=== PATIENT | male | born 1950 | race Caucasian/White ===

== ENCOUNTER → 2020-07-29 10:52 | Outpatient (CLI) | payer MEDICARE, SELFPAY ==
[2020-07-29] MEDS: COVID-19 VACC #1, MRNA(MOD) 100 MCG/0.5 ML VIAL IM (11:00)
== END ==
PROVIDERS: Visit Provider Internal Medicine
DX: Z23 Encounter for immunization (principal)
CPT/HCPCS: 0011A; 91301

== ENCOUNTER → 2020-08-25 14:10 | Outpatient (CLI) | payer MEDICARE, SELFPAY ==
[2020-08-25] MEDS: COVID-19 VACC #2, MRNA(MOD) 100 MCG/0.5 ML VIAL IM (14:20)
== END ==
PROVIDERS: Visit Provider Internal Medicine
DX: Z23 Encounter for immunization (principal)
CPT/HCPCS: 0012A; 91301

== ENCOUNTER → 2022-11-13 15:05 | Outpatient (CLI) | payer MEDICARE, OTHER, SELFPAY ==
--- NOTE | 2022-11-13 15:11 | DI.MRI.S_ITS ---
PROCEDURE: MR PELVIC PROSTATE PROTOCOL INDICATIONS: Elevated and rising PSA TECHNIQUE: Coronal HASTE, axial T1 FSE with fat saturation, 3-plane nonbreath-hold T2 FSE. After the administration of contrast, dynamic axial, delayed axial and coronal VIBE or 2-D FLASH with fat saturation through the pelvis. Optional diffusion weighted imaging and ADC may be performed. COMPARISON: None. FINDINGS: Image quality: Diffusion weighted and dynamic contrast enhanced images are diagnostic. Multiple sequences are degraded by motion artifact however. Prostate: Gland size is 4.6 x 3.3 x 5.8 cm; ellipsoid gland volume is 46 mL. Lesion #1: Size: 1.6 x 0.9 centimeters Location: Left posterolateral peripheral zone, base-mid gland (axial ADC series 24, image 14) T2 signal: T2 weighted images are degraded by motion artifact but the finding appears to demonstrate heterogeneous signal intensity DWI/ADC signal: Hypointense on ADC images with corresponding DWI hyperintensity DCE: Positive BAUDILIO: Possible extracapsular extension posterolaterally in the region of the neurovascular bundle (axial T2 series 4, image 11), however T2 images are degraded by motion artifact Seminal vesicle invasion: Negative PI-RADS: T2 signal - 3; ADC - 5; DCE - positive; Overall score: PI-RADS 5. Genitourinary system: Bladder wall thickness is normal. Distal ureters are non distended. Bowel and peritoneum: No pathologic free pelvic fluid. Inferior colon and small bowel loops are normal in caliber. Nodes and vessels: No pelvic or inguinal adenopathy by size criteria. Iliac vessels are normal in caliber. Soft tissues: Left inguinal hernia containing fat and a short segment of nondilated sigmoid colon. Bones: Marrow demonstrates unremarkable overall signal, without lesions to suggest metastases. IMPRESSION: 1. A 1.6 centimeter lesion at the left peripheral zone, base-mid gland, is consistent with PI-RADS category 5. 2. No suspicious lymph nodes identified in the imaged pelvis. 3. Left inguinal hernia containing fat and a short segment of nondilated sigmoid colon. Dictated by: Alex Hassan M.D. on 11/14/2022 at 9:08 Approved by: Alex Hassan M.D. on 11/14/2022 at 9:36
== END ==
PROVIDERS: PCP Family Medicine; Referring Provider Urology; Visit Provider Urology
DX: R97.20 Elevated prostate specific antigen [PSA] (principal); K40.90 Unilateral inguinal hernia, without obstruction or gangrene, not specified as recurrent
CPT/HCPCS: 72197; A9579

== ENCOUNTER → 2023-01-08 11:11 | Outpatient (CLI) | payer MEDICARE, OTHER, SELFPAY ==
--- NOTE | 2023-01-08 12:41 | DI.CT.S_ITS ---
PROCEDURE: CT ABDOMEN PELVIS W CON INDICATIONS: New diagnosis prostate cancer TECHNIQUE: After the administration of intravenous contrast, axial sections acquired from the lung bases to the pubic symphysis. Coronal and sagittal reformats were performed. For radiation dose reduction, the following was used: automated exposure control, adjustment of mA and/or kV according to patient size. COMPARISON: [facility], , MR PELVIC PROSTATE PROTOCOL, 11/13/2022, 15:23. FINDINGS: Image quality: Excellent. Lung bases: Lung bases are clear. Heart size is normal. Solid organs: Liver: The liver has no mass or intrahepatic biliary ductal dilatation. The portal vein and hepatic veins are patent. Biliary: The gallbladder has no gallstones, pericholecystic fluid, gallbladder wall thickening, or surrounding inflammatory change. Pancreas: The pancreas has no mass or ductal dilatation. There is no surrounding inflammation. Spleen: Normal size. There are no masses. Adrenals: No hypertrophy or nodules. Kidneys: No obstructive calculus or hydronephrosis. No solid mass. No cystic mass. Peritoneum and bowel: The distal esophagus and stomach are normal. The small bowel has a normal caliber and appearance. The terminal ileum is normal. The large bowel has a normal caliber and appearance. The appendix is normal. No free fluid or air. Nodes and vessels: No retroperitoneal or mesenteric adenopathy by size criteria. Aorta and inferior vena cava are normal in size. Miscellaneous: There is a left inguinal hernia containing a segment of the left colon/sigmoid colon PELVIS: Genitourinary: The bladder has no wall thickening or mass. No bladder calcifications. The prostate has an irregular shape with heterogenous enhancement consistent with known prostate cancer. Bones: No suspicious bony lesions. No vertebral body compression fractures. IMPRESSION: No evidence of metastatic disease. Dictated by: Evens Inman M.D. on 01/08/2023 at 14:33 Approved by: Evens Inman M.D. on 01/08/2023 at 14:39
[2023-01-08 12:50] LABS: BUN Creatinine Ratio 21.1 (6-22); Blood Urea Nitrogen 16 mg/dL (9-20); Calcium 8.7 mg/dL (8.4-10.2); Carbon Dioxide 27 mmol/L (22-32); Chloride 104 mmol/L (98-107); Estimated Glomerular Filt Rate > 60 mL/min (>60); Glucose 98 mg/dL (80-110); HEMOLYSIS < 15 (0-50); Potassium 4.2 mmol/L (3.4-5.1); Sodium 136 mmol/L (137-145)
== END ==
PROVIDERS: PCP Family Medicine; Referring Provider Urology; Visit Provider Urology
DX: C61 Malignant neoplasm of prostate (principal); R93.89 Abnormal findings on diagnostic imaging of other specified body structures; K40.90 Unilateral inguinal hernia, without obstruction or gangrene, not specified as recurrent
CPT/HCPCS: 36415; 74177; 80048; Q9967

== ENCOUNTER → 2023-01-15 09:07 | Outpatient (CLI) | payer MEDICARE, OTHER, SELFPAY ==
--- NOTE | 2023-01-15 09:09 | DI.NM.S_ITS ---
PROCEDURE: NM BONE SCAN WHOLE BODY RADIOPHARMACEUTICAL: 31.9 mCi Tc-99m MDP IV. INDICATIONS: New diagnosis prostate cancer TECHNIQUE: Delayed whole-body scintigrams were obtained approximately 3-4 hours after intravenous injection of radiotracer. Anterior and posterior views were acquired from vertex to feet. Additional left and right oblique views of the pelvis were obtained. COMPARISON: [facility], MR, MR PELVIC PROSTATE PROTOCOL, 11/13/2022, 15:23. [facility], CT, CT ABDOMEN PELVIS W CON, 01/08/2023, 13:07. FINDINGS: No abnormal uptake of radiotracer is seen within the bones of the calvarium or bones of the face. No abnormal radiotracer uptake is seen within the cervical spine, thoracic spine, or lumbar spine. No abnormal uptake of radiotracer is seen within the sternum. No abnormal rib uptake is seen. A mild degree of symmetric uptake is seen within the region of the shoulders, which is attributed to degenerative change and is not considered to be pathologic. No abnormal uptake is seen within the upper extremities. No abnormal uptake is seen within the pelvis or within the lower extremities. No abnormal soft tissue uptake is seen. The kidneys demonstrate normal positions. IMPRESSION: No findings of bony metastatic disease can be seen. Dictated by: Angel Luis Hastings M.D. on 01/15/2023 at 13:08 Approved by: Angel Luis Hastings M.D. on 01/15/2023 at 13:09
== END ==
PROVIDERS: PCP Family Medicine; Referring Provider Urology; Visit Provider Urology
DX: C61 Malignant neoplasm of prostate (principal)
CPT/HCPCS: 78306; A9503

== ENCOUNTER 2023-07-23 05:02 | Emergency (ER) | payer MEDICARE, OTHER, SELFPAY ==
[2023-07-23 05:04] VITALS: BP 126/74; PULSE 59; RESP 16; TEMP 36.8; O2SAT 97; BMI 29.2
[2023-07-23 05:22] VITALS: PULSE 58; RESP 14; O2SAT 97
[2023-07-23 05:30] VITALS: BP 113/66; PULSE 57; RESP 13; O2SAT 97
--- NOTE | 2023-07-23 05:34 | DI.RAD.S_ITS ---
PROCEDURE: XR CHEST 1V INDICATIONS: chest pain TECHNIQUE: One view of the chest was acquired. COMPARISON: [facility], , CHEST 2 VIEW, 01/15/2011, 10:49. FINDINGS: Surgical changes and devices: None. Lungs and pleura: Lungs are clear. Minimal left pleural effusion. Mediastinum: Mediastinal contours appear normal. Heart size is normal. Bones and chest wall: No suspicious bony lesions. Overlying soft tissues appear unremarkable. IMPRESSION: Minimal left pleural effusion. Comment: Final report is concordant with preliminary interpretation provided by [facility]. Dictated by: Gallo Adler M.D. on 07/23/2023 at 8:26 Approved by: Gallo Adler M.D. on 07/23/2023 at 8:27
--- NOTE | 2023-07-23 05:44 | ED.EXTPRO ---
HPI - Extremity Problem General Chief complaint: Extremity Problem,Nontraumatic Stated complaint: left should pain, wants to check heart Time Seen by Provider: 07/23/23 05:35 Source: patient Mode of arrival: Family Vehicle History of Present Illness HPI Narrative: Patient is a 73-year-old male history of remote prostate cancer, bradycardia hypothyroid presenting today with left-sided chest discomfort. He reports that he lifts weights and exercises every other day he did exercise yesterday. He reports that he did the exact same exercises as he always does he did not even increase weight something he also does not do. He woke up this morning with left-sided chest discomfort. He says it does hurt when he breathes and moves. Seizure echo to his lap muscle. There is 1 point on his back also hurts. He denies any shortness of breath nausea or diaphoresis. He has no known history of coronary artery disease. Related Data Home Medications Medication Instructions Recorded Confirmed pravastatin 20 mg tablet 1 tab PO QDAY ##0 03/20/17 01/01/23 levothyroxine 137 mcg tablet 137 mcg PO DAILY 11/05/22 01/01/23 Allergies Allergy/AdvReac Type Severity Reaction Status Date / Time No Known Drug Allergies Allergy Unverified 01/17/23 13:30 Patient History Medical History Prostate cancer Abnormal findings on imaging test Benign prostatic hyperplasia Rising PSA level Elevated PSA History of hypothyroidism Hx of hyperlipidemia Family History Mother Cancer Hyperlipidemia Brother Stroke Father CAD (coronary artery disease) Social History marital status: Smoking Status: Former smoker Tobacco: How many years used: 30 caffeine: Yes Smoking Status: Former smoker Exam Initial Vital Signs Initial Vital Signs: Vital Signs Temperature 98.2 F 07/23/23 05:04 Pulse Rate 59 L 07/23/23 05:04 Respiratory Rate 16 07/23/23 05:04 Blood Pressure 126/74 07/23/23 05:04 Pulse Oximetry 97 07/23/23 05:04 Oxygen Delivery Method Room Air 07/23/23 05:04 GENERAL: Alert 73-year-old male and in [no acute] distress. HEENT: Head atraumatic,EOMI, pupils reactive, face symmetric, [moist] mucous membranes CARDIOVASCULAR: Regular rate and rhythm without murmurs, rubs or gallops. RESPIRATORY: Breath sounds equal bilaterally, no wheezes rales or rhonchi. ABDOMEN: Soft, nontender. Normoactive bowel sounds all 4 quadrants. No guarding or rebound. EXTREMITIES: Normal range of motion, no clubbing or edema. Neurovascularly intact NEUROLOGICAL: Alert and oriented x4.Normal gait and speech. Cranial nerves II through XII grossly intact. SKIN: Warm, dry, no laceration, no petechiae, no rashes or lesions. Scores HEART Score Heart Score history: Slightly Suspicious Heart Score EKG: Normal Heart Score Age: > or = 65 years old Heart Score risk factors: No known risk factors Heart Score troponin: < or = to normal limit Heart Score Total: 2 Course Orders Ordered: ED Orders 07/23/23 05:34 XR chest 1V Stat EKG-12 Lead Stat 07/23/23 05:45 Complete Blood Count AUTO DIFF Stat Comprehensive Metabolic Panel Stat Lipase Stat Magnesium Stat PTT Partial Thromboplastin Immanuel Stat Prothrombin Time INR Stat Troponin & CK Cardiac Panel Stat 07/23/23 06:07 CT chest w con Stat 07/23/23 06:42 BNP [NT-proBNP (BNP-Adult 18+)] Stat Vital Signs Vital signs: Vital Signs - 8 hr 07/23/23 05:04 07/23/23 05:22 07/23/23 05:30 Temperature 98.2 F Pulse Rate 59 L 58 L Pulse Rate [Left Radial] Respiratory Rate 16 14 Blood Pressure 126/74 113/66 Pulse Oximetry 97 97 Oxygen Delivery Method Room Air Room Air 07/23/23 05:30 07/23/23 06:00 07/23/23 06:00 Temperature Pulse Rate 57 L 55 L Pulse Rate [Left Radial] Respiratory Rate 13 20 Blood Pressure 104/63 Pulse Oximetry 97 98 Oxygen Delivery Method Room Air Room Air 07/23/23 06:30 07/23/23 06:30 07/23/23 06:44 Temperature Pulse Rate 53 L Pulse Rate [Left Radial] 55 L Respiratory Rate 10 L Blood Pressure 104/63 Pulse Oximetry 96 Oxygen Delivery Method MDM - Extremity (Nontraumatic) Lab Data 07/23/23 05:45 07/23/23 05:45 Labs: Lab Results 07/23/23 07/23/23 Range/Units 05:00 05:45 WBC 7.7 (4.5-11.0) X10^3/uL RBC 4.48 L (4.5-5.9) X10^6/uL Hgb 13.7 (13.5-17.5) g/dL Hct 40.7 L (41-53) % MCV 90.8 (80-100) fL MCH 30.6 (26-34) PG MCHC 33.6 (30-36) % RDW 14.2 (11.6-14.8) % Plt Count 187 (150-400) X10^3/uL Neut % (Auto) 68.8 (50-75) % Lymph % (Auto) 17.3 L (25-40) % [place] % (Auto) 10.5 (3-14) % Eos % (Auto) 2.2 (2-4) % Baso % (Auto) 1.2 (0-2) % Neut # (Auto) 5300 (1991-4041) /uL Lymph # (Auto) 1300 (3541-1100) /uL [place] # (Auto) 800 (0-900) /uL Eos # (Auto) 200 (0-450) /uL Baso # (Auto) 100 (0-100) /uL PT 10.3 (9.4-12.5) SECONDS INR 0.9 (0.9-1.3) APTT 30 (25.1-36.5) SECONDS Sodium 137 (137-145) mmol/L Potassium 3.9 (3.4-5.1) mmol/L Chloride 104 (98-107) mmol/L Carbon Dioxide 27 (22-32) mmol/L BUN 19 (9-20) mg/dL Creatinine 0.80 (0.66-1.25) mg/dL Estimated GFR > 60 (>60) mL/min BUN/Creatinine Ratio 23.8 H (6-22) Glucose 95 (80-110) mg/dL Calcium 8.7 (8.4-10.2) mg/dL Magnesium 2.2 (1.6-2.3) mg/dL Total Bilirubin 0.5 (0.2-1.3) mg/dL AST 23 (17-59) IU/L ALT 20 (<50) IU/L Alkaline Phosphatase 44 (38-126) U/L Total Creatine Kinase 44 L (55-170) U/L Troponin I < 0.012 (0.01-0.034) ng/mL NT-Pro-B Natriuret Pep 39 (<125) pg/mL Total Protein 6.7 (6.3-8.2) g/dL Albumin 3.8 (3.5-5.0) g/dL Globulin 2.9 (1.7-4.1) g/dL Albumin/Globulin Ratio 1.3 (1.0-2.8) Lipase 78 (23-300) U/L Imaging Data Chest x-ray: Radiologist's Impression: Small left pleural effusion CT scan - chest: Radiologist's Impression: Preliminary report bilateral pulmonary nodules measuring to 7 mm. Recommend 3-[address] follow-up. Prominent left pericardial fat pad attributing to recent chest x-ray findings. No pleural effusion is seen. ECG Data Interpretation: Normal sinus rhythm rate 58 NC interval 164 QRS 96 QTC 374 T-wave inversion noted in lead [address] changes MDM Narrative Medical decision making narrative: Patient is 73-year-old male history bradycardia remote prostate cancer presenting today with left-sided pain. He reports that it probably woke him from his sleep but does seem to be semi positional. It certainly does not radiate. Blood work has been reviewed Chest x-ray reviewed Patient is having some left-sided pain which seems slightly positional. However he is found to have a small left pleural effusion with remote history of prostate cancer. CT chest with contrast is done. He certainly is not hypoxic but pleural effusion may be what is causing his pain and discomfort. CT actually does not show pleural effusion but does show prominent pericardial fat pad which is unlikely causing his pain. It he is found to have pulmonary nodules with history of prostate cancer this does need to be monitored. Really do think that patient's symptoms are definitely worse with movement and position most likely musculoskeletal especially with history of exercising. Discussed with patient all findings of CT including nodules. All questions have been addressed. Recommend that patient follow-up with PCP Discharge Plan Departure Patient Disposition: Home Clinical Impression: Atypical chest pain, Muscle strain Instructions: DI for Atypical Chest Pain, DI for Muscle Strain Activity Restrictions/Additional Instructions: *You have been diagnosed with muscle strain atypical chest *What to do: At this time he actually do not have fluid on your lungs you do have small pulmonary nodules measuring 7 mm. It is recommended that you have a repeat CT in 3-6 months especially with your cancer history these need to be monitored. Increase activity as tolerated. You may need to talk to your primary care provider in regards to further cardiac testing *Continue to take medications as directed Motrin 600 mg every 6 hours if needed for [id number] pain or aspirin 650 mg every 4 hours if needed for pain or fever *Follow up with your primary care provider in 2-3 days or call [phone] *Return to ER if you should have increasing chest pain shortness of or any new, worsening or concerning symptoms Prescriptions: No Action pravastatin 20 MG tablet 1 tab PO QDAY Qty: 0 levothyroxine 137 mcg tablet 137 mcg PO DAILY Referrals: Connor Finney MD [Primary Care Provider] - Stand Alone Forms: Patient Portal/API
[2023-07-23 05:55] LABS: Add Manual Diff / Slide Review NO; Basophils Absolute Auto 100 /uL (0-100); Basophils Percent Auto 1.2 % (0-2); Eosinophils Absolute Auto 200 /uL (0-450); Eosinophils Percent Auto 2.2 % (2-4); Hematocrit 40.7 % (41-53); Hemoglobin 13.7 g/dL (13.5-17.5); Lymphocytes Absolute Auto 1300 /uL (1100-4500); Lymphocytes Percent Auto 17.3 % (25-40); Mean Corpuscular HGB Conc 33.6 % (30-36); Mean Corpuscular Hemoglobin 30.6 PG (26-34); Mean Corpuscular Volume 90.8 fL (80-100); Monocytes Absolute Auto 800 /uL (0-900); Monocytes Percent Auto 10.5 % (3-14); Neutrophils Absolute Auto 5300 /uL (1500-7000); Neutrophils Percent Auto 68.8 % (50-75); Platelet Count 187 X10^3/uL (150-400); Red Blood Cell Count 4.48 X10^6/uL (4.5-5.9); Red Cell Distribution Width 14.2 % (11.6-14.8); White Blood Cell Count 7.7 X10^3/uL (4.5-11.0)
[2023-07-23 06:00] VITALS: BP 104/63; PULSE 55; RESP 20; O2SAT 98
[2023-07-23 06:04] LABS: INR 0.9 (0.9-1.3); Prothrombin Time 10.3 SECONDS (9.4-12.5)
[2023-07-23 06:07] LABS: PTT Partial Thromboplastin Tim 30 SECONDS (25.1-36.5)
--- NOTE | 2023-07-23 06:07 | DI.CT.S_ITS ---
PROCEDURE: CT CHEST W CON INDICATIONS: new pleural effusion TECHNIQUE: After the administration of intravenous contrast, 5 mm thick sections acquired from the pulmonary apices to the posterior costophrenic angles. 1 mm axial lung, 5 mm thick coronal and sagittal reformats and 7 mm axial MIP were acquired. For radiation dose reduction, the following was used: automated exposure control, adjustment of mA and/or kV according to patient size. COMPARISON: [facility], , XR CHEST 1V, 07/23/2023, 5:35. FINDINGS: Image quality: Diagnostic. Lower Neck: No enlarged lymph nodes. Thyroid: No thyroid nodules which require sonographic follow up, per consensus guidelines. Axillae: No enlarged lymph nodes. Chest Wall: Unremarkable. Bones: Unremarkable. Lungs and Pleura: No pneumothorax or pleural effusions. Biapical pleural parenchymal thickening. No focal infiltrates. A prominent left pericardial fat pad results in blunting of the left lateral costophrenic angle on chest film. Pulmonary nodules are as follows (all described on series 3): 7 mm right upper lobe nodule, image 49 3 mm right lower lobe pulmonary nodule, image 151 3 mm subpleural right lower lobe pulmonary nodule, image 204 Heart: Heart size is normal. No pericardial effusion. Moderate coronary artery calcifications. A prominent left pericardial fat pad results in the finding on chest x-ray, with blunting of the left lateral costophrenic angle. There is no left pleural effusion. Thoracic Vessels: The aorta and pulmonary arteries demonstrate normal size. Mediastinum and Nina: No enlarged lymph nodes. Esophagus: No wall thickening. No hiatal hernia. Upper Abdomen: Visualized upper abdomen solid organs and bowel loops appear normal. IMPRESSION: 1. There is no left pleural effusion. Chest x-ray finding represents a prominent pericardial fat pad. 2. No acute pulmonary process. 3. Moderate coronary artery calcifications. 4. Multiple small pulmonary nodules, the largest of which is in the right apex, measuring 7 mm. Comment: Recommend six-month follow-up CT of the chest. Comment: Final report is concordant with preliminary interpretation provided by [facility]. Dictated by: Gallo Adler M.D. on 07/23/2023 at 8:28 Approved by: Gallo Adler M.D. on 07/23/2023 at 8:56
[2023-07-23 06:09] LABS: Alanine Aminotransferase 20 IU/L (<50); Albumin 3.8 g/dL (3.5-5.0); Albumin Globulin Ratio 1.3 (1.0-2.8); Alkaline Phosphatase 44 U/L (38-126); Aspartate Aminotransferase 23 IU/L (17-59); BUN Creatinine Ratio 23.8 (6-22); Bilirubin Total 0.5 mg/dL (0.2-1.3); Blood Urea Nitrogen 19 mg/dL (9-20); Calcium 8.7 mg/dL (8.4-10.2); Carbon Dioxide 27 mmol/L (22-32); Chloride 104 mmol/L (98-107); Creatine Kinase 44 U/L (55-170); Estimated Glomerular Filt Rate > 60 mL/min (>60); Globulin 2.9 g/dL (1.7-4.1); Glucose 95 mg/dL (80-110); HEMOLYSIS < 15 (0-50); Lipase 78 U/L (23-300); Magnesium 2.2 mg/dL (1.6-2.3); Potassium 3.9 mmol/L (3.4-5.1); Sodium 137 mmol/L (137-145); Total Protein 6.7 g/dL (6.3-8.2)
[2023-07-23 06:20] LABS: Troponin I < 0.012 ng/mL (0.01-0.034)
[2023-07-23 06:30] VITALS: BP 104/63; PULSE 53; RESP 10; O2SAT 96
[2023-07-23 06:44] VITALS: PULSE 55
[2023-07-23 07:04] LABS: NT-proBNP (BNP-Adult 18+) 39 pg/mL (<125)
== END 2023-07-23 07:42 | disposition home or self-care (01) ==
PROVIDERS: Emergency Provider Emergency Medicine; PCP Family Medicine
DX: R07.89 Other chest pain (principal); S29.011A Strain of muscle and tendon of front wall of thorax, initial encounter
CPT/HCPCS: 36415; 71045; 71260; 80053; 82550; 83690; 83735; 83880; 84484; 85025; 85610; 85730; 93005; 99283; 99284; Q9967

== ENCOUNTER → 2023-10-20 11:24 | Outpatient (CLI) | payer MEDICARE, OTHER, SELFPAY ==
--- NOTE | 2023-10-20 | DI.CT.S_ITS ---
PROCEDURE: CT CHEST WO CON INDICATIONS: Other nonspecific abnormal finding of lung field TECHNIQUE: Noncontrast 5 mm thick sections acquired from the pulmonary apices to the posterior costophrenic angles. 1 mm lung window, 5 mm thick coronal and sagittal and 7 mm axial MIP reformats were then acquired. For radiation dose reduction, the following was used: automated exposure control, adjustment of mA and/or kV according to patient size. COMPARISON: [facility], CT, CT CHEST W CON, 07/23/2023, 6:37. FINDINGS: Image quality: Diagnostic. Lower Neck: No enlarged lymph nodes. Thyroid: No thyroid nodules which require sonographic follow up, per consensus guidelines. Axillae: No enlarged lymph nodes. Chest Wall: Unremarkable. Bones: Unremarkable. Lungs and Pleura: No pneumothorax or pleural effusions. A 7 mm pulmonary nodule is redemonstrated at the right apex. This is unchanged from the study dated July 23, 2023. No other pulmonary nodules which require follow-up. Heart: Heart size is normal. No pericardial effusion. Thoracic Vessels: The aorta and pulmonary arteries demonstrate normal size. Mediastinum and Nina: No enlarged lymph nodes. Esophagus: No wall thickening. No hiatal hernia. Upper Abdomen: There is a low-density left renal cyst which is partially characterized. Visualized upper abdomen solid organs and bowel loops appear otherwise normal. IMPRESSION: 1. Stable 7 mm right pulmonary nodule. Please see follow-up guidelines below. Follow-up in 6-12 months recommended. Fleischner Society criteria for SOLID lung nodule followup. Nodule size (mm)Low-risk patientHigh-risk patient<6 (single or multiple)No routine followup.Optional CT at 12 months. 6-8 (single or multiple)CT at 6-12 months, then optional CT at 18-24 mo.CT at 6-12 months, then CT at 18-24 months. >8 (single)CT at 3 months, PET-CT, or biopsy. Same as for low-risk pts. >8 (multiple)CT at 3-6 months, then optional CT at 18-24 mo.CT at 3-6 months, then CT at 18-24 months. Fleischner Society criteria for SUB-SOLID lung nodule followup. Solitary pure ground-glass nodules<6 mm (ground glass or part solid)No followup needed. 6 mm or larger (ground glass)CT at 6-12 months to confirm persistence, then CT every 2 years until 5 years.6 mm or larger (part solid)CT at 3-6 months to confirm persistence, then annual CT until 5 years if unchanged and solid component remains <6 mm. Multiple sub-solid nodules<6 mmCT at 3-6 months, then CT consider at 2 & 4 years for high risk patients. [address] at 3-6 months. Subsequent management based on most suspicious lesions. Recommendations do not apply to lung cancer screening, patients with immunosuppression, or patients with known primary cancer. Dictated by: Rabia Patel M.D. on 10/20/2023 at 14:42 Approved by: Rabia Patel M.D. on 10/20/2023 at 14:46
== END ==
PROVIDERS: PCP Family Medicine; Referring Provider Family Medicine; Visit Provider Family Medicine
DX: R91.1 Solitary pulmonary nodule (principal); Z87.891 Personal history of nicotine dependence
CPT/HCPCS: 71250

== ENCOUNTER → 2024-06-23 07:43 | Outpatient (CLI) | payer MEDICARE, OTHER, SELFPAY ==
--- NOTE | 2024-06-23 | DI.NM.S_ITS ---
PROCEDURE: NM EXERCISE TREADMILL NON NUC COMPARISON: None. INDICATIONS: Chest pain, palpitations FINDINGS: The patient exercised for 6 minutes and 40 seconds reaching 92% of maximum predicted heart rate. Appropriate BP response to exercise. 7.0METS, JOSE -4%. 92% of maximum predicted heart rate reached. No angina and no diagnostic ST changes during exercise or recovery. No significant ectopy present. IMPRESSION: Low risk, normal treadmill ECG only stress test with average exercise tolerance (JOSE -4%). No angina during the study. Dictated by: Gabino Gastelum MD on 06/23/2024 at 16:55 Approved by: Gabino Gastelum MD on 06/23/2024 at 16:58
== END ==
PROVIDERS: PCP Family Medicine; Referring Provider Family Medicine; Visit Provider Family Medicine
DX: R07.89 Other chest pain (principal); R00.2 Palpitations
CPT/HCPCS: 93017

== ENCOUNTER → 2024-07-07 14:54 | Outpatient (CLI) | payer MEDICARE, OTHER, SELFPAY | LOC: RESP 14:54 | PROVIDERS: PCP Family Medicine; Referring Provider Family Medicine; Visit Provider Family Medicine | DX: R06.02 Shortness of breath (principal); R05.8 Other specified cough; Z87.891 Personal history of nicotine dependence; R94.2 Abnormal results of pulmonary function studies | CPT/HCPCS: 94060; 94726; 94729 ==

== ENCOUNTER → 2025-01-27 10:33 | Outpatient (CLI) | payer MEDICARE, OTHER, SELFPAY | PROVIDERS: PCP Family Medicine; Referring Provider Family Medicine; Visit Provider Family Medicine | DX: Z13.9 Encounter for screening, unspecified (principal) | CPT/HCPCS: 36415 ==

== ENCOUNTER → 2025-04-10 14:34 | Outpatient (CLI) | payer MEDICARE, OTHER, SELFPAY ==
--- NOTE | 2025-04-10 14:36 | DI.MRI.S_ITS ---
PROCEDURE: MR SHOULDER LT WO CON INDICATIONS: r/ o RTC tear TECHNIQUE: Noncontrast oblique coronal T2 fast spin echo with fat saturation, oblique sagittal T1 spin echo and T2 fast spin echo with fat saturation, axial T1 spin echo and T2 fast spin echo with fat saturation through the shoulder. COMPARISON: [facility], CR, XR SHOULDER LT 2+ VIEWS, 03/03/2025, 13:50. FINDINGS: Image quality: Degraded by motion artifact. Rotator cuff: Low-grade articular surface tearing of the anterior supraspinatus tendon at the humeral insertion site. Low-grade intrasubstance tearing of the posterior infraspinatus tendon at the humeral insertion site extending to the musculotendinous junction. The subscapularis, and teres minor tendons are intact. Bones and bursae: No bone marrow contusions or fractures. 6 year mild glenohumeral and moderate acromioclavicular joint degeneration. There is an os acromiale. No pathologic subacromial-subdeltoid or subcoracoid bursal fluid is present. Capsule and soft tissues: Undercutting of the posterior labrum. The long head of the biceps tendon demonstrates normal location and morphology. The rotator interval appears normal, without fibrosis. The coracohumeral ligament is normal in thickness. IMPRESSION: 1. Supraspinatus and infraspinatus tendinopathy. Low-grade tearing of the supraspinatus and infraspinatus tendons. 2. 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 4. Posterior labral tearing. Dictated by: Rosendo Candelaria M.D. on 04/12/2025 at 12:27 Approved by: Rosendo Candelaria M.D. on 04/12/2025 at 12:30
== END ==
LOC: MRI 14:35
PROVIDERS: PCP Family Medicine; Referring Provider Orthopaedic Surgery; Visit Provider Orthopaedic Surgery
DX: M75.42 Impingement syndrome of left shoulder (principal); M75.112 Incomplete rotator cuff tear or rupture of left shoulder, not specified as traumatic; M19.012 Primary osteoarthritis, left shoulder; S43.492A Other sprain of left shoulder joint, initial encounter; M89.8X1 Other specified disorders of bone, shoulder
CPT/HCPCS: 73221